=== PATIENT | female | born 1940 | race Caucasian/White ===

== ENCOUNTER 2023-04-13 14:56 | Emergency (ER) | payer MEDICARE, SELFPAY ==
--- NOTE | ~2023-04-13 | XR_ITS ---
XR chest 2V DATE: 04/13/2023 16:26 INDICATION: New confusion TECHNIQUE: AP and lateral views COMPARISON: None FINDINGS: Heart size is within normal limits. Is aortic calcification and mild unfolding. No hilar or mediastinal enlargement. Mild discoid atelectasis or scarring in the left lower lung. The lungs otherwise appear clear of infi ltrate or consolidation. No pleural effusion or pulmonary vascular congestion or pneumothorax is dete cted. Osteopenia. Degenerative change of the lower cervical spine. Degenerative change and mild scoliosis o f the thoracic and lumbar spine. IMPRESSION: Mild discoid atelectasis or scarring at the left lower lung; otherwise no active cardiac pulmonary disease Aortic atherosclerosis Reviewed, dictated and finalized at location L. IMPRESSION: Mild discoid atelectasis or scarring at the left lower lung; otherw ise no active cardiac pulmonary disease Aortic atherosclerosis
--- NOTE | ~2023-04-13 | CT_ITS ---
EXAMINATION: CT brain wo con DATE: 04/13/2023 16:30 INDICATION: New ataxia and confusion TECHNIQUE: Computed tomography (CT) of the head was performed without intravenous contrast. The mA wa s adjusted according to patient size. Iterative reconstruction technique was employed. Exam dose: 60 5.33 mGy-cm total exam DLP. COMPARISON: None FINDINGS: Bilateral vertebral artery, basilar artery and prominent bilateral carotid siphon internal carotid artery calcifications are noted. There is nonspecific diminished attenuation of the cerebral white matter, likely due to chronic small vessel ischemic changes. No intracranial hemorrhage or mass lesion or recent cerebrovascular accident, midline shift or mass e ffect effect is noted. There is central and cortical cerebral and cerebellar moderately prominent atrophy. No fracture or bone destruction of the cranial vault. Minimal mucoperiosteal thickening of the left maxillary sinus. The included paranasal sinuses and mas toid air cells are otherwise unremarkable. IMPRESSION: Cerebral atherosclerosis and chronic small vessel ischemic changes of the cerebral white matter Central and cortical cerebral and cerebellar atrophy No acute intracranial finding Reviewed, dictated and finalized at [facility]. Reviewed, dictated and finalized at location L.
[2023-04-13 15:05] VITALS: BP 160/74; PULSE 75; RESP 16; TEMP 36.4; O2SAT 99
[2023-04-13 15:22] LABS: Basophils Absolute Auto 0.1 K/mm3 (0.0-0.1); Basophils Percent Auto 0.6 % (0.2-1.2); Eosinophils Absolute Auto 0.3 K/mm3 (0-0.3); Eosinophils Percent Auto 2.9 % (0-4.4); Hemoglobin 14.2 g/dL (12.0-15.0); Immature Granulocyte Absolute 0.05 K/mm3 (0.00-0.031); Immature Granulocyte Percent A 0.5 % (0-0.5); Lymphocytes Absolute Auto 1.89 K/mm3 (0.9-3.2); Lymphocytes Percent Auto 17.7 % (18.3-44.2); Mean Corpuscular HGB Conc 31.6 g/dl (32-36); Mean Corpuscular Hemoglobin 28.3 pg (26-34); Mean Corpuscular Volume 89.8 fl (80-100); Mean Platelet Volume 9.5 fl (7.4-10.4); Monocytes Absolute Auto 0.8 K/mm3 (0.1-0.6); Monocytes Percent Auto 7.4 % (2.6-8.5); Neutrophils Absolute Auto 7.6 K/mm3 (1.3-6.7); Neutrophils Percent Auto 70.9 % (45.5-73.1); Platelet Count Result 289 k/mm3 (150-375); Red Blood Count 5.01 M/mm3 (4.2-5.4); Red Cell Distribution Width 14.1 % (11.5-14.5); White Blood Count 10.7 K/mm3 (4.5-10.0)
[2023-04-13 15:34] LABS: Alanine Aminotransferase 47 U/L (6-35); Albumin Level 3.9 g/dL (3.5-5.1); Alkaline Phosphatase 93 U/L (38-126); Anion Gap 4 mmol/L (8-16); Aspartate Amino Transferase 45 U/L (14-36); Bilirubin,Total 0.3 mg/dL (0.2-1.3); Blood Urea Nitrogen 26 mg/dL (7-17); Calcium 9.4 mg/dL (8.4-10.2); Carbon Dioxide 33 mmol/L (22-30); Chloride 103 mmol/L (98-107); Estimated Glomerular Filt Rate 60; Glucose 104 mg/dL (65-110); Potassium 4.4 mmol/L (3.4-5.0); Sodium 140 mmol/L (137-145)
[2023-04-13 16:18] LABS: Appearance Urine Clear (Clear); Bacteria Urine None Seen /hpf; Bilirubin Urine Negative (Negative); Blood Urine 1+ (Negative); Color Urine Dark Yellow (Yellow); Glucose Urine UA Negative (Negative); Ketones Urine Negative (Negative); Leukocyte Esterase Ur Negative LEU/UL (Negative); Need Manual Microscopic Reviewed; Nitrate Urine Negative (Negative); Non Pathogenic Casts 0-2; Protein Urine Trace mg/dL (Negative); Specific Grav Ur 1.023 (1.001-1.035); Squamous Epithelial Cell Urine None seen /hpf (Few); Urobilinogen Urine 0.2 mg/dL (<2.0); WBC Urine 0-5 /hpf; pH Urine 5.5 (5.0-9.0)
[2023-04-13 16:19] LABS: Add Urine Microscopic? YES
--- NOTE | 2023-04-13 16:53 | ED.GENADULT ---
HPI - General Adult General Chief complaint: Urogenital-Female Stated complaint: delusional/ poss uti Time Seen by Provider: 04/13/23 15:49 History of Present Illness HPI narrative: 82-year-old female presenting with 2 days of acute altered mental status, per daughter she has been more confused, to the point where she talked about how she has 4 different 's. She did just move from her home in [place] to a new assisted living home here 4 days ago. She has no complaints to me. Review of Systems Review of Systems: CONST: No fever. HEENT: No sore throat C/V: No chest pain RESP: No cough GI: No abdominal pain : No dysuria. M/S: No joint pain. SKIN: No rash. NEURO: [No headache or focal numbness or weakness] PSYCH: [No depression] Exam Narrative: EXAMINATION OF ORGAN SYSTEMS/BODY AREAS: Constitutional: Vital signs per nursing GENERAL:[No acute distress, non-toxic appearing.] HEAD: Normal with no signs of head trauma. EYES: EOMI, conjunctiva normal ENT: Hearing grossly intact LUNGS: Nonlabored breathing. HEART: [Regular rate and rhythm] ABD: [Soft], [nontender to palpation] EXT: Normal range of motion SKIN: [No rashes or lesions.] NEURO: [Alert and oriented x 2. No gross focal sensory or strength deficits.] Steady gait. PSYCH: Normal affect Course Vital Signs Vital signs: Vital Signs Temperature 97.6 F 04/13/23 15:05 Pulse Rate 75 04/13/23 15:05 Respiratory Rate 16 04/13/23 15:05 Blood Pressure 160/74 H 04/13/23 15:05 Pulse Oximetry 99 04/13/23 15:05 Oxygen Delivery Room Air 04/13/23 15:05 Temperature 97.6 F 04/13/23 15:05 Pulse Rate 82 04/13/23 17:15 Respiratory Rate 18 04/13/23 17:15 Blood Pressure 158/80 H 04/13/23 17:15 Pulse Oximetry 96 04/13/23 17:15 Oxygen Delivery Room Air 04/13/23 15:05 Medical Decision Making MDM Narrative Medical decision making narrative: 82-year-old female presenting with 2 days of new confusion per daughter, she had just moved to a new long-term 1 day before that, daughter is concerned about an infection causing her symptoms. Vital signs normal here, on exam she is well-appearing, in no distress, without any obvious focal neurologic deficits, she is at her baseline. I have low concern for CVA without neurologic deficits but I will obtain a CT head. Infectious work-up initiated, she has a very minimally elevated WBC, otherwise labs within acceptable limits, including no UTI, CT head does not show any obvious acute abnormalities, chest x-ray independently interpreted by myself no obvious consolidations, on reevaluation patient still in no distress, I was able to ambulate her and she has steady gait, discussed with the daughter who agrees that she seems to be kind of back to her baseline, we discussed that she may be reacting to being a new place, daughter agreeable to her going back to the assisted living care facility and following up with her doctor, and coming back to the ER for any further issues or if she has any further symptoms. Vital Signs Vital Signs: Vital Signs Temperature 97.6 F 04/13/23 15:05 Pulse Rate 75 04/13/23 15:05 Respiratory Rate 16 04/13/23 15:05 Blood Pressure 160/74 H 04/13/23 15:05 Pulse Oximetry 99 04/13/23 15:05 Oxygen Delivery Room Air 04/13/23 15:05 Temperature 97.6 F 04/13/23 15:05 Pulse Rate 82 04/13/23 17:15 Respiratory Rate 18 04/13/23 17:15 Blood Pressure 158/80 H 04/13/23 17:15 Pulse Oximetry 96 04/13/23 17:15 Oxygen Delivery Room Air 04/13/23 15:05 Lab Data 04/13/23 15:13 04/13/23 15:13 Labs: Lab Results 04/13/23 04/13/23 Range/Units 15:13 15:56 WBC 10.7 H (4.5-10.0) K/mm3 RBC 5.01 (4.2-5.4) M/mm3 Hgb 14.2 (12.0-15.0) g/dL Hct 45.0 (37.0-47.0) % MCV 89.8 (80-100) fl MCH 28.3 (26-34) pg MCHC 31.6 L (32-36) g/dl RDW 14.1 (11.5-14.5) % Plt Count 289 (150-375) k/mm3
[2023-04-13 17:15] VITALS: BP 158/80; PULSE 82; RESP 18; O2SAT 96
== END 2023-04-13 17:15 ==
LOC: ANHED 16:53
PROVIDERS: Emergency Medicine; Emergency Provider Emergency Medicine
DX: R41.82 Altered mental status, unspecified (principal)
CPT/HCPCS: 36415; 70450; 71046; 80053; 81001; 85025; 99284

== ENCOUNTER 2023-04-23 19:19 | Emergency (ER) | payer MEDICARE, SELFPAY ==
--- NOTE | ~2023-04-23 | CT_ITS ---
EXAMINATION: CT brain wo con DATE: 04/24/2023 02:46 INDICATION: Fall. Patient struck back of head. TECHNIQUE: Computed tomography (CT) of the head was performed without intravenous contrast. The mA wa s adjusted according to patient size. Iterative reconstruction technique was employed. Exam dose: 60 5.33 mGy-cm total exam DLP. COMPARISON: 04/13/2023 CT brain FINDINGS: Cranial cerebral calcified atherosclerosis is again noted in addition to nonspecific dimini shed attenuation of the cerebral white matter, likely due to chronic small vessel ischemic changes. There is central and cortical cerebral and cerebellar atrophy. No intracranial mass lesion or hemorrhage or recent cerebrovascular accident, midline shift or mass e ffect. No subdural or epidural hematoma is detected. No skull fracture or bone destruction. IMPRESSION: No skull fracture or acute intracranial finding Reviewed, dictated and finalized at [facility]. Reviewed, dictated and finalized at location A.
--- NOTE | ~2023-04-23 | CT_ITS ---
EXAMINATION: CT cervical spine wo con DATE: 04/24/2023 02:46 INDICATION: Trauma TECHNIQUE: Computed tomography (CT) of the cervical spine was performed without intravenous contrast. Automated exposure control and iterative reconstruction technique were employed. Exam dose: 524.21 mGy-cm total exam DLP. COMPARISON: None FINDINGS: There is reversal cervical curvature which may be due to muscle spasm. C1 and C2 are normally aligned and the odontoid process is intact.. C2-3 and C3-4 interspaces are well preserved. Moderately severe degenerative disc disease at C4-5, C5-6 and C6-7. There is minimal anterolisthesis at C7-T1. No fracture or dislocation or locked facet or prevertebral soft tissue swelling. IMPRESSION: Reversal cervical curvature which may be due to muscle spasm Cervical spondylosis; no fracture or dislocation or locked facet Reviewed, dictated and finalized at [facility]. Reviewed, dictated and finalized at location A.
--- NOTE | ~2023-04-23 | XR_ITS ---
XR tibia fibula RT 2V DATE: 04/24/2023 02:54 INDICATION: Laceration to anterior mid lower leg TECHNIQUE: AP and lateral views of right lower leg COMPARISON: None FINDINGS: No radiopaque soft tissue foreign body is evident. No fracture or dislocation, periosteal reaction or bone destruction is detected. Normal alignment at the knee and ankle joints. IMPRESSION: No radiopaque soft tissue foreign body or fracture or dislocation or other bony abnormali ty of the tibia or fibula Reviewed, dictated and finalized at location A. IMPRESSION: No radiopaque soft tissue foreign body or fracture or dislocation o r other bony abnormality of the tibia or fibula
[2023-04-23 20:11] VITALS: BP 152/64; PULSE 94; RESP 15; TEMP 36.6; O2SAT 96
[2023-04-24] VITALS (7 sets, daily range): BP systolic 147–164; BP diastolic 64–74; PULSE 75–82; RESP 19–25; O2SAT 96–100
[2023-04-24] MEDS: TETANUS,DIPHTHERIA,AC PERTUSSIS ADULT (0.5 ML) BOOSTRIX IM (02:53)
[2023-04-24 04:10] LABS: Basophils Absolute Auto 0.1 K/mm3 (0.0-0.1); Basophils Percent Auto 0.6 % (0.2-1.2); Eosinophils Absolute Auto 0.4 K/mm3 (0-0.3); Eosinophils Percent Auto 3.4 % (0-4.4); Hemoglobin 13.1 g/dL (12.0-15.0); Immature Granulocyte Absolute 0.05 K/mm3 (0.00-0.031); Immature Granulocyte Percent A 0.5 % (0-0.5); Lymphocytes Absolute Auto 2.37 K/mm3 (0.9-3.2); Lymphocytes Percent Auto 22.3 % (18.3-44.2); Mean Corpuscular Hemoglobin 28.5 pg (26-34); Mean Corpuscular Volume 89.3 fl (80-100); Mean Platelet Volume 9.4 fl (7.4-10.4); Neutrophils Absolute Auto 6.8 K/mm3 (1.3-6.7); Neutrophils Percent Auto 64.2 % (45.5-73.1); Platelet Count Result 271 k/mm3 (150-375); Red Blood Count 4.59 M/mm3 (4.2-5.4); Red Cell Distribution Width 14.1 % (11.5-14.5); White Blood Count 10.6 K/mm3 (4.5-10.0)
[2023-04-24 04:25] LABS: Appearance Urine Clear (Clear); Bacteria Urine None Seen /hpf; Bilirubin Urine Negative (Negative); Blood Urine Trace (Negative); Color Urine Yellow (Yellow); Glucose Urine UA Negative (Negative); Ketones Urine Negative (Negative); Leukocyte Esterase Ur Negative LEU/UL (Negative); Nitrate Urine Negative (Negative); Non Pathogenic Casts 0-2; Protein Urine Negative (Negative); Specific Grav Ur 1.009 (1.001-1.035); Squamous Epithelial Cell Urine None seen /hpf (Few); Urobilinogen Urine 0.2 mg/dL (<2.0); WBC Urine 0-5 /hpf
[2023-04-24 04:25] LABS: Alanine Aminotransferase 36 U/L (6-35); Albumin Level 3.7 g/dL (3.5-5.1); Alkaline Phosphatase 104 U/L (38-126); Anion Gap 1 mmol/L (8-16); Aspartate Amino Transferase 38 U/L (14-36); Bilirubin,Total 0.2 mg/dL (0.2-1.3); Blood Urea Nitrogen 23 mg/dL (7-17); Calcium 8.6 mg/dL (8.4-10.2); Carbon Dioxide 32 mmol/L (22-30); Chloride 101 mmol/L (98-107); Estimated CRCL calculation 46 ml/min; Estimated Glomerular Filt Rate > 60; Glucose 111 mg/dL (65-110); Sodium 134 mmol/L (137-145)
[2023-04-24 04:42] LABS: Add Urine Microscopic? YES
--- NOTE | 2023-04-24 06:50 | ED.GENADULT ---
HPI - General Adult General Chief complaint: Fall Stated complaint: FALL, R LEG LAC, NECK PAIN Time Seen by Provider: 04/24/23 01:56 History of Present Illness HPI narrative: 82-year-old female who presents the emergency department with chief complaint of fall. Patient now a resident of a local [facility] facility and got caught up on her feet and fell patient reports no loss of consciousness but has had increasing confusion patient reports that she has a skin tear on her right lower extremity. Related Data Allergies Allergy/AdvReac Type Severity Reaction Status Date / Time acetaminophen Allergy Other Verified 04/23/23 20:19 ciprofloxacin Allergy Hives Verified 04/23/23 20:19 erythromycin base Allergy Hives Verified 04/23/23 20:19 naproxen Allergy Gastrointestinal Verified 04/23/23 20:19 Upset oxycodone Allergy Other Verified 04/23/23 20:19 procaine Allergy Other Verified 04/23/23 20:19 Review of Systems Review of Systems: A 10 system review of systems was completed on the patient and is negative except for what is stated in the HPI. Nursing and ancillary documentation was reviewed. Exam Narrative: GENERAL: Well-appearing, well-nourished, and in no acute distress. HEAD: Normocephalic, atraumatic. EYES: PERRLA and EOMI. ENT: Nares clear, no rhinorrhea or epistaxis. Mucous membranes moist. NECK: Supple. CHEST: Clear to auscultation. No respiratory distress. HEART: Regular rate and rhythm. No murmur heard. Normal peripheral pulses. ABDOMEN: Soft, nontender, nondistended, normal active bowel sounds. EXTREMITIES: Normal range of motion there is a skin tear present on the right lower extremity. No edema. SKIN: Warm, dry, no rash. NEURO: No focal deficits. Alert and pleasantly confused. PSYCH: Normal mood and affect. Course Vital Signs Vital signs: Vital Signs Temperature 36.6 C 04/23/23 20:11 Pulse Rate 94 04/23/23 20:11 Respiratory Rate 15 04/23/23 20:11 Blood Pressure 152/64 H 04/23/23 20:11 Pulse Oximetry 96 04/23/23 20:11 Oxygen Delivery Room Air 04/23/23 20:11 Temperature 36.6 C 04/23/23 20:11 Pulse Rate 77 04/24/23 02:16 Respiratory Rate 19 04/24/23 02:16 Blood Pressure 164/74 H 04/24/23 02:16 Pulse Oximetry 96 04/24/23 01:46 Oxygen Delivery Room Air 04/24/23 00:22 Medical Decision Making MDM Narrative Medical decision making narrative: Differential diagnosis includes metabolic encephalopathy, UTI, intracranial hemorrhage, Laboratory studies were obtained which showed a normal urinalysis CBC showed a white count of 10.6 electrolytes showed no acute abnormality. CT head and CT C-spine showed no evidence of acute abnormality Tib-fib showed no evidence of fracture. Vital Signs Vital Signs: Vital Signs Temperature 36.6 C 04/23/23 20:11 Pulse Rate 94 04/23/23 20:11 Respiratory Rate 15 04/23/23 20:11 Blood Pressure 152/64 H 04/23/23 20:11 Pulse Oximetry 96 04/23/23 20:11 Oxygen Delivery Room Air 04/23/23 20:11 Temperature 36.6 C 04/23/23 20:11 Pulse Rate 77 04/24/23 02:16 Respiratory Rate 19 04/24/23 02:16 Blood Pressure 164/74 H 04/24/23 02:16 Pulse Oximetry 96 04/24/23 01:46 Oxygen Delivery Room Air 04/24/23 00:22 Lab Data 04/24/23 04:03 04/24/23 04:03 Labs: Lab Results 04/24/23 04/24/23 Range/Units 04:03 04:12 WBC 10.6 H (4.5-10.0) K/mm3 RBC 4.59 (4.2-5.4) M/mm3 Hgb 13.1 (12.0-15.0) g/dL Hct 41.0 (37.0-47.0) % MCV 89.3 (80-100) fl MCH 28.5 (26-34) pg MCHC 32.0 (32-36) g/dl RDW 14.1 (11.5-14.5) % Plt Count 271 (150-375) k/mm3 MPV 9.4 (7.4-10.4) fl Immature Gran % (Auto) 0.5 (0-0.5) % Neut % (Auto) 64.2 (45.5-73.1) % Lymph % (Auto) 22.3 (18.3-44.2) % [place] % (Auto) 9.0 H (2.6-8.5) % Eos % (Auto) 3.4 (0-4.4) % Baso % (Auto) 0.6 (0.2-1.2) % Lymph # (Auto) 2.37 (0.9-3.2) K/mm3 Mo
== END 2023-04-24 07:03 ==
PROVIDERS: Emergency Provider Emergency Medicine
DX: S81.811A Laceration without foreign body, right lower leg, initial encounter (principal); F03.90 Unspecified dementia, unspecified severity, without behavioral disturbance, psychotic disturbance, mood disturbance, and anxiety; Z23 Encounter for immunization; M47.812 Spondylosis without myelopathy or radiculopathy, cervical region; W18.39XA Other fall on same level, initial encounter
CPT/HCPCS: 36415; 70450; 72125; 73590; 80053; 81001; 85025; 90471; 90715; 99284

== ENCOUNTER 2023-07-02 18:16 | Emergency (ER) | payer MEDICARE, SELFPAY ==
--- NOTE | ~2023-07-02 | CT_ITS ---
EXAMINATION: CT brain wo con DATE: 07/02/2023 18:51 INDICATION: Head injury. Headache. TECHNIQUE: Computed tomography (CT) of the head was performed without intravenous contrast. The mA wa s adjusted according to patient size. Iterative reconstruction technique was employed. The dose-lengt h product was 605.33 mGy-cm. COMPARISON: Head CT 04/24/2023 FINDINGS: There are old infarcts in the right basal ganglia. There are scattered areas of low attenua tion in the cerebral white matter. There is no intracranial hemorrhage, acute infarction, or abnormal intracranial mass lesion. The ventricles are normal in size. There are likely changes of ocular lens replacement surgeries. There is mild mucosal thickening in the paranasal sinuses. The mastoid air ce lls are normal. There is right posterior superior scalp soft tissue swelling. IMPRESSION: 1. 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 2. Stable moderate nonspecific cerebral white matter disease, which likely represents chronic small v essel ischemic disease. Reviewed, dictated and finalized at location E. IMPRESSION: 1. 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 2. Stable moderate nonspecific cerebral white matter disease, which likely repr esents chronic small vessel ischemic disease.
--- NOTE | ~2023-07-02 | XR_ITS ---
EXAMINATION: XR knee RT 3V DATE: 07/02/2023 19:11 INDICATION: Right knee injury. TECHNIQUE: 3 views of right knee were obtained. COMPARISON: Right tibia and fibula radiographs 04/24/2023 FINDINGS: Bone alignment is normal. No fracture. There is mild osteoarthritis of lateral compartment. There is chondrocalcinosis of the [place]. No knee joint effusion. IMPRESSION: 1. Mild right knee osteoarthritis. Reviewed, dictated and finalized at location E.
--- NOTE | ~2023-07-02 | XR_ITS ---
EXAMINATION: XR thoracic spine 3V DATE: 07/02/2023 19:11 INDICATION: Fall. TECHNIQUE: 3 views of thoracic spine on 4 radiographs were obtained. COMPARISON: None. FINDINGS: There is 12 degrees levoscoliosis of upper thoracic spine and 8 degrees dextrocurvature of lower thoracic spine. Vertebral body heights are normal in thoracic spine. There is severely decrease d disc height at multiple levels in the mid and lower thoracic spine. IMPRESSION: 1. Severe thoracic spondylosis. 2. Scoliosis. Reviewed, dictated and finalized at location E.
--- NOTE | ~2023-07-02 | XR_ITS ---
EXAMINATION: XR lumbar spine 2-3V DATE: 07/02/2023 19:11 INDICATION: Fall. TECHNIQUE: 2 views of lumbar spine were obtained. COMPARISON: Chest 2 views 04/13/2023 FINDINGS: There is 15 degrees levoscoliosis of lumbar spine. There is 4 mm anterolisthesis of L4 on L 5. There is a chronic compression fracture of L1 with 1/5 loss of height. There is moderately decreas ed disc height at L1-L2 and severely decreased disc height from L2-L3 through L5-S1. There is a total right hip arthroplasty. IMPRESSION: 1. Severe lumbar spondylosis. 2. Lumbar levoscoliosis. Reviewed, dictated and finalized at location E.
--- NOTE | ~2023-07-02 | CT_ITS ---
EXAMINATION: CT cervical spine wo con DATE: 07/02/2023 18:51 INDICATION: Head injury. TECHNIQUE: Computed tomography (CT) of the cervical spine was performed without intravenous contrast. Automated exposure control and iterative reconstruction technique were employed. The dose-length pro duct was 266.96 mGy-cm. COMPARISON: CT cervical spine 04/24/2023 FINDINGS: There is a 22 mm nodule in left thyroid lobe. There is mild emphysema. There is right supra clavicular lymphadenopathy with the largest node measuring 17 x 10 mm. There is 14 degrees dextroscol iosis of cervicothoracic spine. There is 2 mm anterolisthesis of C7 on T1. There is kyphosis of lower cervical spine. Vertebral body heights are normal. There is severely decreased disc height from C4-C 5 through C6-C7. The following disc levels are specifically discussed: C2-C3: There is no uncovertebral joint osteoarthritis. There is mild left facet joint osteoarthritis. There is no neural foraminal stenosis. There is no central canal stenosis. C3-C4: There is mild bilateral uncovertebral joint osteoarthritis. There is mild right facet joint os teoarthritis. There is no neural foraminal stenosis. There is mild central canal stenosis. C4-C5: There is mild right and severe left uncovertebral joint osteoarthritis. There is mild bilatera l facet joint osteoarthritis. There is mild left neural foraminal stenosis. There is mild central can al stenosis. C5-C6: There is severe bilateral uncovertebral joint osteoarthritis. There is mild bilateral facet jayson int osteoarthritis. There is mild bilateral neural foraminal stenosis. There is mild central canal st enosis. C6-C7: There is severe bilateral uncovertebral joint osteoarthritis. There is mild right and severe l eft facet joint osteoarthritis. There is mild bilateral neural foraminal stenosis. There is mild cent ral canal stenosis. C7-T1: There is no uncovertebral joint osteoarthritis. There is severe bilateral facet joint osteoart hritis. There is mild bilateral neural foraminal stenosis. There is no central canal stenosis. IMPRESSION: 1. No fracture. 2. Severe cervical spondylosis. 3. Right supraclavicular lymphadenopathy which may be reactive or metastatic disease. Consider ultras ound-guided core needle biopsy. 4. Left thyroid nodule. Consider thyroid ultrasound if clinically indicated given the patient's age. Reviewed, dictated and finalized at location E. IMPRESSION: 1. No fracture. 2. Severe cervical spondylosis. 3. Right supraclavicular lymphadenopathy which may be reactive or metastatic di maryuri. Consider ultrasound-guided core needle biopsy. 4. Left thyroid nodule. Consider thyroid ultrasound if clinically indicated giv en the patient's age.
[2023-07-02 18:18] VITALS: BP 160/65; PULSE 78; RESP 19; TEMP 36.6; O2SAT 94
--- NOTE | 2023-07-02 18:20 | ED.FALL ---
HPI - Fall General Chief Complaint: Fall Stated Complaint: Fall Time Seen by Provider: 07/02/23 18:16 Source: patient and EMS Mode of arrival: EMS History of Present Illness HPI Narrative: 83 years old white female with history of dementia came to the emergency room by ambulance after found on the floor in the bathroom, unwitnessed fall, a bump at the occipital area, patient denying any symptoms, MD complaint: fall Related Data Allergies Allergy/AdvReac Type Severity Reaction Status Date / Time acetaminophen Allergy Other Verified 07/02/23 18:38 ciprofloxacin Allergy Hives Verified 07/02/23 18:38 erythromycin base Allergy Hives Verified 07/02/23 18:38 naproxen Allergy Gastrointestinal Verified 07/02/23 18:38 Upset oxycodone Allergy Other Verified 07/02/23 18:38 procaine Allergy Other Verified 07/02/23 18:38 tetanus immune globulin Allergy Unknown Verified 07/02/23 18:38 Review of Systems Review of Systems: ROS unobtainable: Yes unobtainable due to medical condition and unobtainable due to mental status Exam Narrative: General appearance: Well-developed, well-nourished, does not look in pain or distress Skin: Normal color Head: Occipital hematoma Eyes: Clear conjunctiva ENT: Oropharynx normal, ears normal, nose normal Neck: C-collar on Chest and respiratory: Airway patent, no respiratory distress, no accessory muscle use Heart: Regular rate/rhythm Abdomen: Soft, nontender, no organomegaly, quiet bowel sounds Vascular: Normal peripheral pulses, normal capillary refill. Musculoskeletal: Slight limited range of motion of right knee, no bruises, no swelling, no rash no deformity Neurologic: Alert and oriented to her name only Course Vital Signs Vital signs: Vital Signs Temperature 36.6 C 07/02/23 18:18 Pulse Rate 78 07/02/23 18:18 Respiratory Rate 19 07/02/23 18:18 Blood Pressure 160/65 H 07/02/23 18:18 Pulse Oximetry 94 07/02/23 18:18 Oxygen Delivery Room Air 07/02/23 18:18 Temperature 36.6 C 07/02/23 18:18 Pulse Rate 78 07/02/23 18:18 Respiratory Rate 19 07/02/23 18:18 Blood Pressure 160/65 H 07/02/23 18:18 Pulse Oximetry 94 07/02/23 18:18 Oxygen Delivery Room Air 07/02/23 18:18 MDM - Fall MDM Narrative Medical decision making narrative: Patient came from assisting living with ground fall, and weakness. Patient complaining of right knee pain. Differential diagnosis include head injury, cervical fracture, vertebral fracture, right knee fracture/contusion. Work-up today include CT head, cervical spine showed no acute abnormalities, x-ray of the thoracic and lumbar spine and right knee showed no acute abnormalities. Patient looks comfortable, not in pain or distress. Patient's daughter at the bedside and there was informed that the patient need to be with somebody for the coming 48 hours to make sure she is not going to have another fall. Differential Diagnosis Differential diagnosis: Likely compression fracture, concussion without loss of consciousness and other (Scalp hematoma) Medical Records Attestation: I reviewed the patient's medical records. Imaging Data Attestation: I personally reviewed and interpreted this imaging study as follows: Radiologist's impression: Impressions Head CT 07/02/23 18:52 IMPRESSION: 1. 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 2. Stable moderate nonspecific cerebral white matter disease, which likely represents chronic small vessel ischemic disease. Cervical Spine CT 07/02/23 18:54 IMPRESSION: 1. No fracture. 2. Severe cervical spondylosis. 3. Right supraclavicular lymphadenopathy which may be reactive or metastatic disease. Cons
--- NOTE | 2023-07-02 18:40 | PC.NURSE ---
pt to CT via stretcher at this time
[2023-07-02 19:20] VITALS: BP 157/70; PULSE 77; RESP 14; TEMP 36.2; O2SAT 94
== END 2023-07-02 19:30 ==
PROVIDERS: Emergency Provider Emergency Medicine
DX: S00.03XA Contusion of scalp, initial encounter (principal); F03.90 Unspecified dementia, unspecified severity, without behavioral disturbance, psychotic disturbance, mood disturbance, and anxiety; R90.82 White matter disease, unspecified; M47.812 Spondylosis without myelopathy or radiculopathy, cervical region; M47.816 Spondylosis without myelopathy or radiculopathy, lumbar region; E04.1 Nontoxic single thyroid nodule; M17.11 Unilateral primary osteoarthritis, right knee; M47.814 Spondylosis without myelopathy or radiculopathy, thoracic region; W19.XXXA Unspecified fall, initial encounter
CPT/HCPCS: 70450; 72072; 72100; 72125; 73562; 99284